=== PATIENT | male | born 1945 | race African-American/Black ===

== ENCOUNTER 2016-10-18 08:54 | Outpatient (CLI) | payer OTHER ==
[2015-10-29 10:55] VITALS: BMI 19.9
[2016-10-18 09:18] LABS: BASOPHILS # (AUTO) 0.1 K/uL (0-0.2); BASOPHILS % (AUTO) 0.9 % (0.0-3.0); EOSINOPHILS # (AUTO) 0.4 K/ul (0.0-0.7); HEMOGLOBIN 16.3 g/dl (14.0-18.0); IMMATURE GRANULOCYTE % (AUTO) 0.3 % (0.0-5.0); LYMPHOCYTES # (AUTO) 2.1 K/uL (0.60-3.4); LYMPHOCYTES % (AUTO) 23.1 (10.0-50.0); MEAN CORPUSCULAR HEMOGLOBIN 29.4 pg (27.0-31.0); MEAN CORPUSCULAR VOLUME 86.5 fl (80.0-94.0); MONOCYTES # (AUTO) 0.7 K/uL (0.4-2.0); MONOCYTES % (AUTO) 7.5 (0-10); NEUTROPHILS # (AUTO) 5.8 K/ul (2.0-6.9); NEUTROPHILS % (AUTO) 64.2; PLATELET COUNT 180 10^3/uL (140-440); RED BLOOD COUNT 5.55 10^6/ul (4.70-6.10); WHITE BLOOD COUNT 9.04 K/ul (4.2-10.2)
[2016-10-18 15:40] LABS: ALBUMIN 4.2 g/dL (3.4-5.0); ALBUMIN/GLOBULIN RATIO 1.35; BILIRUBIN,TOTAL 0.66 mg/dL (0.00-1.20); BUN/CREATININE RATIO 11.84; CALCIUM 9.6 mg/dL (8.2-10.2); CREATININE 1.52 mg/dL (0.60-1.10); TOTAL PROTEIN 7.3 g/dL (5.8-8.1)
== END 2016-10-18 08:55 | disposition home or self-care (01) ==
LOC: LAB 08:54
PROVIDERS: ATTEND Family Medicine
DX: I10 Essential (primary) hypertension (principal)
CPT/HCPCS: 36415; 80053; 85025

== ENCOUNTER 2017-06-10 13:17 | Emergency (ER) ==
[2017-06-10 13:22] VITALS: BP 187/99; TEMP 97.3; BMI 20.2
--- NOTE | 2017-06-10 14:43 | CT ---
EXAM: CT of the head without contrast History: Head trauma. Comparison: Head CT 10/29/2015 Technique: Multiplanar CT images through the head were obtained without the administration of IV con trast Findings: The visualized paranasal sinuses and mastoid air cells are clear in general. No acute cherry varial abnormalities. Stable postsurgical changes of the skull. Intracranially stable bifrontal encephalomalacia and stable right-sided shunt catheter with no hydroc ephalous. No change in the periventricular and subcortical white matter hypodensities. Aneurysm cli p again identified. Atherosclerotic vascular calcifications. No acute intracranial hemorrhage. Impression: No acute intracranial process. Stable chronic brain changes. No change compared to the prior study.
--- NOTE | 2017-06-10 14:48 | CT ---
EXAM: CT chest without contrast HISTORY: Cough and recent trauma/injury COMPARISON: Chest CT 08/28/2012 TECHNIQUE: Serial axial images of the chest were obtained from the lung apices to the upper abdomen without contrast. These were viewed in multiple planes. FINDINGS: The thyroid is normal. Subcutaneous right sided shunt tube is unchanged. The lead wires are unchanged with tips in the right atrium and ventricle. Heart is mildly enlarged. The visualized vessels are unremarkable without aneurysm or stenosis. There are no pathologically enlarged mediasti nal or hilar lymph nodes. There is no pneumothorax or pleural effusion. There is mild apical predominant emphysema. There is m ild bibasilar atelectasis. There is mild small airway thickening in the lower lobes. No consolidatio n, nodule or mass is identified. The soft tissues in the upper abdomen are unremarkable. There is persistent adrenal nodularity. The osseous structures are unremarkable. IMPRESSION: 1. Mild small airway thickening suggestive of inflammation versus infection. 2. Mild apical predominant emphysema with no acute consolidation. There is mild bibasilar atelectasi s. 3. The heart is mildly enlarged.
--- NOTE | 2017-06-10 14:53 | CT ---
EXAM: CT cervical spine without contrast. HISTORY: Initial presentation for neck injury due to a fall. COMPARISON: None available. TECHNIQUE: Multiple axial images of the cervical spine were obtained without intravenous contrast. Images were reformatted in the sagittal and coronal planes. FINDINGS: There is normal curvature and alignment. Vertebral body and intervertebral disc heights a re maintained. No fracture or subluxation is seen. There is no evidence for significant central can al stenosis. Uncovertebral hypertrophy and facet arthropathy cause multilevel neural foraminal narrow ing which is greater on the left. The prevertebral soft tissues are unremarkable. Shunt catheter cour ses in the right neck although it is discontinuous for approximately 3.6 cm at the level of the skull base and upper cervical spine. Emphysematous changes present in the lung apices. Atherosclerotic ca lcifications noted. IMPRESSION: 1. No acute abnormality of the cervical spine. 2. Right-sided ventriculoperitoneal shunt catheter with 3.6 centimeter area of discontinuityat the l evel of the skull base/upper cervical spine.
--- NOTE | 2017-06-10 15:21 | ED.PDOC ---
General ED Provider: Dr. IRAM LARSON Chief Complaint: Head Injury Stated Complaint: head injury Time Seen by Physician: 13:30 (fall at [facility]) Mode of Arrival: Walk-In Information Source: Patient, Family Exam Limitations: No limitations Primary Care Provider: SHUKRI CASTILLO Nursing and Triage Documentation Reviewed and Agree: Yes Reviewed sepsis parameters & appropriate labs ordered?: Yes System Inflammatory Response Syndrome: Not Applicable Sepsis Protocol: For patient's 13 years and over: Temp is 96.8 and below OR 101 and greater Pulse >90 BPM Resp >20/minute Acutely Altered Mental Status Are patient's symptoms suggestive of a new infection, such as: -Pneumonia -Skin, Soft Tissue -Endocarditis -UTI -Bone, Joint Infection -Implantable Device -Acute Abdominal Infection -Wound Infection -Meningitis -Blood Stream Catheter Infection -Unknown System Inflammatory Response Syndrome: Not Applicable Review of Systems - Review Of Systems Constitutional: Reports: No symptoms Eyes: Reports: No symptoms Ears, Nose, Mouth, Throat: Reports: No symptoms Respiratory: Reports: No symptoms Cardiac: Reports: No symptoms GI: Reports: No symptoms : Reports: No symptoms Musculoskeletal: Reports: No symptoms Skin: Reports: No symptoms Neurological: Reports: No symptoms Endocrine: Reports: No symptoms Hematologic/Lymphatic: Reports: No symptoms All Other Systems: Reviewed and Negative Past Medical History - Past Medical History Previously Healthy: Yes Endocrine: Reports: None Cardiovascular: Reports: Hypertension, Other Respiratory: Reports: None Hematological: Reports: None Gastrointestinal: Reports: None Genitourinary: Reports: None Neuro/Psych: Reports: Other Musculoskeletal: Reports: None Cancer: Reports: None - Surgical History General Surgical History: Reports: Stent (ventricular shunt after aneurysm surgery), Pacemaker - Family History Family History: Reports: Unknown - Social History Smoking Status: Current every day smoker, Light tobacco smoker Hx Substance Use: No Alcohol Screening: None Physical Exam - Physical Exam Appearance: Well-appearing, No pain distress, Well-nourished Eyes: NATALIIA, EOMI, Conjunctiva clear (abrasion above left orbit) ENT: Ears normal, Nose normal, Oropharynx normal Respiratory: Airway patent, Breath sounds clear, Breath sounds equal, Respirations nonlabored Cardiovascular: RRR, Pulses normal, No rub, No murmur GI/: Soft, Nontender, No masses, Bowel sounds normal, No Organomegaly Musculoskeletal: Normal strength, ROM intact, No edema, No calf tenderness Skin: Warm, Dry, Normal color Neurological: Sensation intact, Motor intact, Reflexes intact, Cranial nerves intact, Alert, Oriented Psychiatric: Affect appropriate, Mood appropriate Interpretation - Radiology Interpretation Radiology Interpretation By: Radiologist Radiology Results: No acute changes Physician Notification - Case Discussed Physician Notified: PMD Time of Notification: 15:22 Critical Care Note - Critical Care Note Total Time (mins): 0 Course - Course Hematology/Chemistry: 06/10/17 14:10 06/10/17 14:10 Orders, Labs, Meds: Lab Review 06/10/17 06/10/17 06/10/17 14:10 14:10 14:10 WBC 10.75 H RBC 5.04 Hgb 14.5 Hct 44.2 MCV 87.7 MCH 28.8 MCHC 32.8 RDW Coeff of Delmy 14.6 Plt Count 212 Immature Gran % (Auto) 0.7 Neut % (Auto) 81.4 Lymph % (Auto) 10.6 Mayes % (Auto) 5.0 Eos % (Auto) 1.6 Baso % (Auto) 0.7 Immature Gran # (Auto) 0.1 Neut # 8.8 H Lymph # 1.1 Mayes # 0.5 Eos # 0.2 Baso # 0.1 Sodium 142 Potassium 4.1 Chloride 105 Carbon Dioxide 28 Anion Gap 13.1 BUN 13 Creatinine 1.17 H Estimated GFR (MDRD) 75.00 BUN/Creatinine Ratio 11.11 Glucose 101 Calcium 9.5 Total Bilirubin 0.6 AST 16 ALT 7 L Alkaline Phosphatase 75 Total Creatine Kinase 127 CK-MB (CK-2) 2.6 CK-MB (CK-2) % 2.52059 Troponin I 0.0480 Total Protein 7.6 Albumin 4.1 Globulin 3.5 Albumin/Globulin Ratio 1.17 Procalcitonin < 0.05 Orders Category Date Time Status EKG-(ED ONLY) Stat CARDIO 06/10/17 13:41 Completed BLOOD CULTURE (ED ONLY) Stat LAB 06/10/17 14:10 Received CBC W/ AUTO DIFF Stat LAB 06/10/17 14:10 Completed COMPREHENSIVE METABOLIC PANEL Stat LAB 06/10/17 14:10 Completed CREATINE KINASE Stat LAB 06/10/17 14:10 Completed PROCALCITONIN Stat LAB 06/10/17 14:10 Completed TROPONIN I Stat LAB 06/10/17 14:10 Completed URINALYSIS C & S IF INDICATED Stat LAB 06/10/17 13:[address] CERVICAL SPINE W/O CONTRAST Stat RADS 06/10/17 13:[address] CHEST W/O CONTRAST Stat RADS 06/10/17 13:[address] HEAD W/O CONTRAST Stat RADS 06/10/17 13:40 Completed Vital Signs: Temp Pulse Resp BP Pulse Ox 06/10/17 13:18 97.3 F L 82 16 187/99 H 94 L Departure - Departure Time of Disposition: 15:22 Disposition: HOME SELF-CARE Discharge Problem: Injury of head, Poorly-controlled hypertension Instructions: Head Injury (ED) Condition: Good Pt referred to PMD for follow-up: Yes IPMP verified?: Yes Additional Instructions: Please call your Family Physician as soon as possible to schedule a follow-up appointment. Allergies/Adverse Reactions: Allergies No Known Allergies Allergy (Verified 06/10/17 13:22) Home Medications: Ambulatory Orders Lisinopril 10 mg PO DAILY #30 tablet 09/17/15 Donepezil HCl 10 mg PO BEDTIME 06/10/17 Memantine HCl 10 mg PO BID 06/10/17
[2017-06-10] MEDS ORDERED: ZESTRIL PO STA (15:23)
== END 2017-06-10 16:59 | disposition home or self-care (01) ==
LOC: ED 13:17
DX: S09.90XA Unspecified injury of head, initial encounter (principal); W19.XXXA Unspecified fall, initial encounter; Y92.512 Supermarket, store or market as the place of occurrence of the external cause; I10 Essential (primary) hypertension; Z79.899 Other long term (current) drug therapy
CPT/HCPCS: 36415; 80053; 82550; 82553; 84145; 84484; 85025; 87040; 93005; 93010; 99283

== ENCOUNTER 2017-06-30 07:20 | Outpatient (CLI) | payer OTHER ==
--- NOTE | 2017-06-30 08:34 | US ---
EXAM: Abdominal ultrasound limited HISTORY: Abdominal pain COMPARISON: CT chest abdomen pelvis 08/28/2012 and bone scan 01/16/2016 TECHNIQUE: Sonographic and limited Doppler evaluation of the right upper quadrant was performed. FINDINGS: The liver is normal in echogenicity and measures 11.9 cm. The portal vein is patent. The gallbladder demonstrates minimal sludge. The gallbladder wall measures 0.2 cm in thickness. Common bile duct is unremarkable and measures 0.4. cm in diameter. The pancreas is unremarkable in appearan ce. The right kidney is partial obscured due to bowel gas and measures 7.9 x 3.5 x 3.8 cm with cortic al thickness of 0.8 cm. IMPRESSION: Minimal gallbladder sludge with no wall thickening or pericholecystic fluid.
--- NOTE | 2017-06-30 09:34 | CT ---
EXAM: CT ABDOMEN AND PELVIS HISTORY: Right upper quadrant abdominal pain for 2 weeks TECHNIQUE: CT abdomen and pelvis with intravenous contrast. Images were reconstructed using 5 mm sec tion thickness. Reformations were prepared. 75 mL Omnipaque. COMPARISON: 08/28/2012 FINDINGS: Liver demonstrates a 5 x 9 mm low attenuation lesion right hepatic lobe posteriorly which is grossly stable probably representing a cyst. No noticeable intrahepatic or extrahepatic biliary dilatation. S pleen appears normal. The gallbladder is grossly unremarkable. The pancreatic duct is seen throughou t the length of the organ grossly similar to that on prior study and indicating a mild dilatation. N o obvious acute pancreatic inflammation or mass is identified. No concerning adrenal finding. A few s mall renal cortical cysts are suggested. No hydronephrosis. The ureters are not well seen. There i s no perinephric fat stranding. Moderately severe atherosclerotic disease. There is a saccular aneu rysmal dilatation of the lower right common iliac artery measuring 1.9 cm increased from 1.6 cm previ ously. No gastric distension. What appears to represent a portion of the appendix appears normal. Nonobstr uctive bowel gas pattern. There is a significantly enlarged, somewhat lobulated prostate. Urinary b ladder has circumferential wall thickening as well as two intraluminal calculi each measuring about 1 .7 cm. The calculi have enlarged since the previous exam. The urinary bladder wall thickening has d eveloped and the prostate size has increased since previous study. No ascites. There is a catheter e nding in the lower pelvis. No abdominal wall hernia. The bones reveal no acute abnormality. Lung bases are free of acute infil trate. Cardiomegaly is present. No pneumoperitoneum. IMPRESSION: 1. Grossly stable mild main pancreatic duct dilatation without evidence of pancreatic mass or inflam mation. Correlate clinically. No intrahepatic or extrahepatic biliary dilatation is identified. Th e gallbladder appears normal. 2. Moderately severe atherosclerosis. 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 3. Significantly enlarged and lobulated prostate, increased since previous exam. 4. Two moderate sized bladder calculi. There is circumferential urinary bladder wall thickening lik jean carlos related to chronic partial outlet obstruction. 5. Cardiomegaly.
== END 2017-06-30 07:21 | disposition home or self-care (01) ==
LOC: RAD 07:20
PROVIDERS: ATTEND Family Medicine
DX: R10.9 Unspecified abdominal pain (principal)
CPT/HCPCS: 36415; 80053; 82150; 83690; 85025

== ENCOUNTER 2017-10-19 12:15 | Outpatient (CLI) | payer OTHER | END 2017-10-19 12:16 | disposition home or self-care (01) | LOC: LAB 12:15 | PROVIDERS: ATTEND Family Medicine | DX: R10.9 Unspecified abdominal pain (principal); R63.4 Abnormal weight loss | CPT/HCPCS: 36415; 80053; 84439; 84443; 85025 ==

== ENCOUNTER 2017-12-26 12:44 | Emergency (ER) | payer OTHER ==
[2017-12-26 12:54] VITALS: BP 101/69; TEMP 96.1; BMI 18.2
--- NOTE | 2017-12-26 14:29 | DI ---
EXAM: CHEST FRONTAL VIEW HISTORY: Cough. FINDINGS / IMPRESSION: Compared to 07/20/2010. Cardiomegaly is again noted. Left-sided pacemaker unit has been placed. The ventricular lead is chelsie tered over the lower mid cardiac silhouette. Consider having the orthopedics nurse view the imaged to ass ure this position is appropriate. Evaluation of the leads is limited without two views of the chest. Lungs are clear. No vascular congestion or pleural fluid. Probable ventriculoperitoneal shunt.
--- NOTE | 2017-12-26 14:50 | CT ---
EXAM: CT of the head without contrast History: Head trauma. Comparison: Head CT 06/10/2017. Technique: Multiplanar CT images through the head were obtained without the administration of IV con trast Findings: The visualized paranasal sinuses and mastoid air cells are clear in general. No acute cherry varial abnormalities. Stable postsurgical changes of the skull. Intracranially stable bifrontal encephalomalacia and stable right-sided shunt catheter with no hydroc ephalous. No change in the periventricular and subcortical white matter hypodensities. Aneurysm cli p again identified. Atherosclerotic vascular calcifications. No acute intracranial hemorrhage. Impression: No acute intracranial process. Stable chronic brain changes. No change compared to the prior study.
--- NOTE | 2017-12-26 14:51 | CT ---
EXAM: CT cervical spine without contrast. HISTORY: Cervical pain post fall COMPARISON: CT cervical spine 06/10/2017 TECHNIQUE: Serial axial images of the cervical spine were obtained from the skull base through the l booker apices without contrast. These were viewed in multiple planes. FINDINGS: There is no acute compression fracture or subluxation. There is mild straightening/revers al of the cervical spine which is unchanged in comparison to prior study. There is mild facet arthro soham. There is no lytic or blastic lesion. C1 ring is intact with mild degenerative change at the articulation of C1. There is intact tubing within the soft tissues of the posterior right neck with u nchanged a discontinuity in the region of the skull base.. Lung apices demonstrate moderate emphysema . IMPRESSION: 1. No acute compression fracture or subluxation. 2. Straightening/mild reversal of the cervical spine which is unchanged. 3. Mild multilevel degenerative disease of the cervical spine. 4. Unchanged [employer] shunt catheter with area of discontinuity in the skull base. This is stable since .
--- NOTE | 2017-12-26 15:27 | ED.PDOC ---
General ED Provider: Dr. IRAM LARSON Chief Complaint: Fall Stated Complaint: FALL POSSIBLE SYNCOPE Time Seen by Physician: 13:00 (PT AOX3 NO PAIN FACIAL ABRASION NOTED ) Mode of Arrival: Wheelchair Information Source: Patient Exam Limitations: No limitations Primary Care Provider: SHUKRI CASTILLO Nursing and Triage Documentation Reviewed and Agree: Yes Does patient meet sepsis criteria?: No If yes, has appropriate treatment been initiated?: No System Inflammatory Response Syndrome: Not Applicable Sepsis Protocol: For patient's 13 years and over: Temp is 96.8 and below OR 101 and greater Pulse >90 BPM Resp >20/minute Acutely Altered Mental Status Are patient's symptoms suggestive of a new infection, such as: -Pneumonia -Skin, Soft Tissue -Endocarditis -UTI -Bone, Joint Infection -Implantable Device -Acute Abdominal Infection -Wound Infection -Meningitis -Blood Stream Catheter Infection -Unknown Neurological Complaint Exam - Syncope/Near Syncope Complaint/Exam Onset/Duration: TODAY AT A LOCAL [employer] OUT SIDE FOUND BY [facility]ASS[facility] BY Symptoms Are: Still present Number of Episodes: 1 Frequency of Episodes: 1 Episodes Witnessed: Yes (BUT THE PERSON IS NOT HERE ) Loss of Consciousness: No (POSSIBLE BUT PRESENTLY ALERT.O.X 3 ) Associated Head Trauma: No (BUT FACIAL ABRASION LEFT SIDED ) Activity at Onset: Unknown Aggravating: None Alleviating: Reports: Spontaneous resolution Associated Signs and Symptoms: Denies: Pain, Decreased oral intake, Vomiting, Diarrhea, GI blood loss, Short of air, Chest pain, Palpitations, Diaphoresis, Lightheadedness, Dizziness, Weakness, AMS, Numbness, Headache, Seizure, Remote head trauma, Recent head trauma Cardiac Risk Factors: Reports: Hypertension GI Bleed Risk Factors: Reports: None Dysrhythmia Risk Factors: Reports: None Related Surgical History: Reports: None JVD Present: No Carotid Bruit Present: No Rectal Heme Positive: No Glascow Coma Scale (see protocol): 15 Nystagmus Present: No Gag Reflex Present: Yes Meningeal Signs Positive: No Focal Weakness: Present: None Focal Sensory Loss: Present: None Gait: Normal [id number]: Normal Findings Babinski Sign: Negative Right, Negative Left Differential Diagnoses: Dysrhythmia, Hypoglycemia, Metabolic Reaction Quality Indicators for Cardiac Chest Pain: EKG in 10min. Quality Indicator For Non-Traumatic Chest Pain/Syncope: EKG Performed Review of Systems - Review Of Systems Constitutional: Reports: No symptoms Eyes: Reports: No symptoms Ears, Nose, Mouth, Throat: Reports: No symptoms Respiratory: Reports: No symptoms Cardiac: Reports: Syncope GI: Reports: No symptoms : Reports: No symptoms Musculoskeletal: Reports: No symptoms Skin: Reports: No symptoms Neurological: Reports: No symptoms Endocrine: Reports: No symptoms Hematologic/Lymphatic: Reports: No symptoms All Other Systems: Reviewed and Negative Past Medical History - Past Medical History Previously Healthy: Yes Endocrine: Reports: None Cardiovascular: Reports: Hypertension, Other Respiratory: Reports: None Hematological: Reports: None Gastrointestinal: Reports: None Genitourinary: Reports: None Neuro/Psych: Reports: Other Musculoskeletal: Reports: None Cancer: Reports: None - Surgical History General Surgical History: Reports: Stent (ventricular shunt after aneurysm surgery), Pacemaker - Family History Family History: Reports: Unknown - Social History Smoking Status: Current every day smoker, Light tobacco smoker Hx Substance Use: No Alcohol Screening: None Physical Exam - Physical Exam Appearance: Well-appearing, No pain distress, Well-nourished Eyes: NATALIIA, EOMI, Conjunctiva clear ENT: Ears normal, Nose normal, Oropharynx normal Respiratory: Airway patent, Breath sounds clear, Breath sounds equal, Respirations nonlabored Cardiovascular: RRR, Pulses normal, No rub, No murmur GI/: Soft, Nontender, No masses, Bowel sounds normal, No Organomegaly Musculoskeletal: Normal strength, ROM intact, No edema, No calf tenderness Skin: Warm, Dry (ABRASION LEFT FACE) Neurological: Sensation intact, Motor intact, Reflexes intact, Cranial nerves intact, Alert, Oriented Psychiatric: Affect appropriate, Mood appropriate Interpretation - Radiology Interpretation Radiology Interpretation By: Radiologist Radiology Results: No acute changes (CSPINE, CT BRAIN, CHEST GARY NO ACUTE CHANGES) - Resident Associate Rhythm: Sinus - EKG Interpretation Rhythm: Sinus (INTERNSIC RYTHM IS SINUS ATRIAL PACER WITH 100% CAPTURE NO CRITERIA TO STATISFY FOR M.I.(NO GAR[place]OSSA CRITERIA OR MODIFIED GAR[place]OS[place] CRITERIA NOTED TO BE POSTIVE)) Critical Care Note - Critical Care Note Total Time (mins): 0 Course - Course Hematology/Chemistry: 12/26/17 13:35 12/26/17 13:35 Orders, Labs, Meds: Lab Review 12/26/17 12/26/17 12/26/17 13:35 13:35 13:35 WBC 12.59 H RBC 4.59 L Hgb 13.4 L Hct 40.1 L MCV 87.4 MCH 29.2 MCHC 33.4 RDW Coeff of Delmy 14.6 Plt Count 188 Immature Gran % (Auto) 0.6 Neut % (Auto) 81.4 Lymph % (Auto) 9.9 L Crook % (Auto) 5.3 Eos % (Auto) 2.1 Baso % (Auto) 0.7 Immature Gran # (Auto) 0.1 Neut # (Auto) 10.2 H Lymph # (Auto) 1.3 Crook # (Auto) 0.7 Eos # (Auto) 0.3 Baso # (Auto) 0.1 Puncture Site O2 Saturation ABG pH ABG pCO2 ABG pO2 ABG HCO3 ABG Total CO2 ABG Base Excess Akshat Test FiO2 % Sodium 139 Potassium 4.2 Chloride 107 Carbon Dioxide 24 Anion Gap 12.2 BUN 19 H Creatinine 1.36 H Estimated GFR (MDRD) 63.00 BUN/Creatinine Ratio 13.97 Glucose 105 Lactic Acid 20.7 H Calcium 9.3 Total Bilirubin 0.6 AST 14 L ALT 8 L Alkaline Phosphatase 63 Total Creatine Kinase 89 Troponin I 0.0200 Total Protein 6.8 Albumin 3.7 Globulin 3.1 Albumin/Globulin Ratio 1.19 Procalcitonin 12/26/17 12/26/17 13:35 13:45 WBC RBC Hgb Hct MCV MCH MCHC RDW Coeff of Delmy Plt Count Immature Gran % (Auto) Neut % (Auto) Lymph % (Auto) Crook % (Auto) Eos % (Auto) Baso % (Auto) Immature Gran # (Auto) Neut # (Auto) Lymph # (Auto) Crook # (Auto) Eos # (Auto) Baso # (Auto) Puncture Site R brach O2 Saturation 97.0 ABG pH 7.429 ABG pCO2 37.7 ABG pO2 84.0 L ABG HCO3 25.0 ABG Total CO2 26 ABG Base Excess 1 Akshat Test + FiO2 % 21.0 Sodium Potassium Chloride Carbon Dioxide Anion Gap BUN Creatinine Estimated GFR (MDRD) BUN/Creatinine Ratio Glucose Lactic Acid Calcium Total Bilirubin AST ALT Alkaline Phosphatase Total Creatine Kinase Troponin I Total Protein Albumin Globulin Albumin/Globulin Ratio Procalcitonin < 0.05 Orders Category Date Time Status ABG DRAW REQUEST Stat CARDIO 12/26/17 13:43 Completed EKG-(ED ONLY) Stat CARDIO 12/26/17 13:14 Completed ABG Stat LAB 12/26/17 13:45 Completed BLOOD CULTURE Stat LAB 12/26/17 13:15 Received CBC W/ AUTO DIFF Stat LAB 12/26/17 13:35 Completed COMPREHENSIVE METABOLIC PANEL Stat LAB 12/26/17 13:35 Completed CREATINE KINASE Stat LAB 12/26/17 13:35 Completed LACTIC ACID Stat LAB 12/26/17 13:35 Completed PROCALCITONIN Stat LAB 12/26/17 13:35 Completed TROPONIN I Stat LAB 12/26/17 13:35 Completed CHEST, 1V AP ONLY Stat RADS 12/26/17 13:[address] CERVICAL SPINE W/O CONTRAST Stat RADS 12/26/17 13:[address] HEAD W/O CONTRAST Stat RADS 12/26/17 13:14 Completed Vital Signs: Temp Pulse Resp BP Pulse Ox 12/26/17 12:48 96.1 F L 83 16 101/69 96 Departure - Departure Time of Disposition: 15:31 Disposition: HOME SELF-CARE Discharge Problem: Falls, Renal insufficiency Syncope Qualifiers: Syncope type: unspecified Qualified Code(s): R55 - Syncope and collapse Instructions: Syncope (ED), Pacemaker (DC), Chronic Kidney Disease (ED) Condition: Good Pt referred to PMD for follow-up: Yes IPMP verified?: No Additional Instructions: Please call your Family Physician as soon as possible to schedule a follow-up appointment. Allergies/Adverse Reactions: Allergies No Known Allergies Allergy (Verified 12/26/17 12:48) Home Medications: Ambulatory Orders Lisinopril 10 mg PO DAILY #30 tablet 09/17/15 Donepezil HCl 10 mg PO BEDTIME 06/10/17 Memantine HCl 10 mg PO BID 06/10/17
== END 2017-12-26 15:40 | disposition home or self-care (01) ==
LOC: ED 12:44
DX: R55 Syncope and collapse (principal); S00.81XA Abrasion of other part of head, initial encounter; W19.XXXA Unspecified fall, initial encounter; I10 Essential (primary) hypertension; Z95.0 Presence of cardiac pacemaker; F17.210 Nicotine dependence, cigarettes, uncomplicated
CPT/HCPCS: 36415; 80053; 82550; 82803; 83605; 84145; 84484; 85025; 87040; 93005; 93010; 99283

== ENCOUNTER 2018-04-29 14:25 | Emergency (ER) ==
[2018-04-29 14:39] VITALS: TEMP 97.3; BMI 18.3
--- NOTE | 2018-04-29 15:45 | CT ---
EXAM: CT brain without contrast HISTORY: Syncope TECHNIQUE: Multi-slice transaxial helical with coronal and sagital reformated images COMPARISON: CT brain from 12/26/2017 FINDINGS: The midline structures are central. A right transparietal ventriculoperitoneal shunt tube ends near the body of the right lateral ventricle and is unchanged. There are aneurysm clips near t he terminus of the left internal carotid artery/anterior communicating artery. A left frontal pariet al craniotomy has been performed in the past. There is mild ex vacuo dilatation of the frontal horns of the lateral ventricle. There is encephalomalacia in the frontal lobes, left greater than right. Moderate low attenuation in the periventricular white matter is nonspecific but is likely related to chronic microvascular ischemic disease. No acute intraparenchymal or extraaxial hemorrhagic collecti ons are detected. The calvarium is intact. The visible paranasal sinuses and mastoid air cells are clear. IMPRESSION: 1. No acute intracranial process. 2. Shunted ventricles without hydrocephalous. 3. Bifrontal encephalomalacia, left greater than right. 4. Previous open aneurysm repair of the [place] of [place]. 5. Previous left frontal craniotomy. 6. Moderate chronic microvascular ischemic disease.
--- NOTE | 2018-04-29 16:02 | ED.PDOC ---
General ED Provider: Dr. TOM GAMEZ Chief Complaint: Syncope Stated Complaint: Patient was found down on the street by a by stander. Family states he walks all the time. It is not sure how low he was out for probably 5 minutes he says. Has chronic mild headache. Time Seen by Physician: 14:45 Mode of Arrival: Wheelchair Information Source: Patient Exam Limitations: No limitations Primary Care Provider: SHUKRI CASTILLO Nursing and Triage Documentation Reviewed and Agree: Yes Does patient meet sepsis criteria?: No System Inflammatory Response Syndrome: Not Applicable Sepsis Protocol: For patient's 13 years and over: Temp is 96.8 and below OR 101 and greater Pulse >90 BPM Resp >20/minute Acutely Altered Mental Status Are patient's symptoms suggestive of a new infection, such as: -Pneumonia -Skin, Soft Tissue -Endocarditis -UTI -Bone, Joint Infection -Implantable Device -Acute Abdominal Infection -Wound Infection -Meningitis -Blood Stream Catheter Infection -Unknown Neurological Complaint Exam - Syncope/Near Syncope Complaint/Exam Onset/Duration: today Symptoms Are: Still present Episodes Lasting: Minutes (5) Number of Episodes: 1 Frequency of Episodes: once Episodes Witnessed: No Loss of Consciousness: Yes Associated Head Trauma: No Activity at Onset: Unknown Aggravating: None Alleviating: Reports: Spontaneous resolution Associated Signs and Symptoms: Reports: Pain (mild headache ). Denies: Decreased oral intake, Vomiting, Diarrhea, GI blood loss, Short of air, Chest pain, Dizziness, Weakness, AMS, Numbness, Headache, Seizure, Remote head trauma , Recent head trauma Cardiac Risk Factors: Reports: Smoking GI Bleed Risk Factors: Reports: None Dysrhythmia Risk Factors: Reports: None JVD Present: No Carotid Bruit Present: No Rectal Heme Positive: No Glascow Coma Scale (see protocol): 15 Nystagmus Present: No Gag Reflex Present: No Meningeal Signs Positive: No Focal Weakness: Present: None Focal Sensory Loss: Present: None Gait: Normal [id number]: Normal Findings Romberg Test Positive: No Babinski Sign: Negative Right, Negative Left Heel to Toe Normal: No Atwood-Hallpike Test Positive: No Differential Diagnoses: CVA, TIA Quality Indicator For Non-Traumatic Chest Pain/Syncope: EKG Performed Quality Indicators for AMI: EKG in 10min. Review of Systems - Review Of Systems Constitutional: Reports: No symptoms Eyes: Reports: No symptoms Ears, Nose, Mouth, Throat: Reports: No symptoms Respiratory: Reports: No symptoms Cardiac: Reports: Lightheadedness, Syncope. 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), Pacemaker - Family History Family History: Reports: Unknown - Social History Smoking Status: Current every day smoker, Light tobacco smoker Hx Substance Use: No Alcohol Screening: None Physical Exam - Physical Exam Appearance: Well-appearing, No pain distress, Well-nourished Eyes: NATALIIA, EOMI, Conjunctiva clear ENT: Ears normal, Nose normal, Oropharynx normal Respiratory: Airway patent, Breath sounds clear, Breath sounds equal, Respirations nonlabored Cardiovascular: RRR, Pulses normal, No rub, No murmur GI/: Soft, Nontender, No masses, Bowel sounds normal, No Organomegaly Musculoskeletal: Normal strength, ROM intact, No edema, No calf tenderness Skin: Warm, Dry, Normal color Neurological: Sensation intact, Motor intact, Reflexes intact, Cranial nerves intact, Alert, Oriented Psychiatric: Anxious - NIH Stroke Scale 1a. Level of Consciousness: 0=Alert and keenly responsive 1b. Level of Consciousness Questions: 0=Answers correctly to two questions 1c. Level of Consciousness Commands: 0=Performs two tasks correctly 2. Best Gaze: 0=Normal 3. Visual: 0=No visual loss 4. Facial Palsy: 0=Normal 5a. Motor Left Arm: 0=No drift,arm holds 90 degrees for 10 sec., leg 30 degrees for 5 sec. 5b. Motor Right Arm: 0=No drift,arm holds 90 degrees for 10 sec., leg 30 degrees for 5 sec. 6a. Motor Left Le=No drift,arm holds 90 degrees for 10 sec., leg 30 degrees for 5 sec. 6b. Motor Right Le=No drift,arm holds 90 degrees for 10 sec., leg 30 degrees for 5 sec. 7. Limb Ataxia: 0=Absent 9. Best Language: 0=No aphasia 10. Dysarthria: 0=Normal 11. Extincion and Inattention: 0=Normal Stroke Scale Total: 0 Interpretation - Radiology Interpretation Radiology Interpretation By: Radiologist Radiology Results: No acute changes Exam Interpreted: CT Scan - EKG Interpretation Time of EKG #1: 14:54 Rate: Normal (electronic paced ) Rhythm: Other (paced) Interpretation: Electronic Paced. Critical Care Note - Critical Care Note Total Time (mins): 35 Course - Course Hematology/Chemistry: 04/29/18 14:50 04/29/18 14:50 Orders, Labs, Meds: Lab Review 04/29/18 04/29/18 04/29/18 14:50 14:50 14:50 WBC 9.76 RBC 4.82 Hgb 14.0 Hct 43.5 MCV 90.2 MCH 29.0 MCHC 32.2 RDW Coeff of Delmy 14.0 Plt Count 210 Immature Gran % (Auto) 0.4 Neut % (Auto) 76.0 Lymph % (Auto) 14.9 [place] % (Auto) 5.6 Eos % (Auto) 2.0 Baso % (Auto) 1.1 Immature Gran # (Auto) 0.0 Neut # (Auto) 7.4 H Lymph # (Auto) 1.5 [place] # (Auto) 0.6 Eos # (Auto) 0.2 Baso # (Auto) 0.1 Sodium 138.8 Potassium 4.18 Chloride 103.3 Carbon Dioxide 29.1 Anion Gap 10.58 BUN 19.4 Creatinine 1.46 H Estimated GFR (MDRD) 58.00 BUN/Creatinine Ratio 13.28 Glucose 94.9 Calcium 9.42 Total Bilirubin 0.56 AST 20.1 ALT 11.0 Alkaline Phosphatase 60.5 Total Creatine Kinase 48.9 L Troponin I 0.018 Total Protein 7.38 Albumin 4.37 Globulin 3.01 Albumin/Globulin Ratio 1.45 Amylase 203.9 H Lipase 418.0 H Orders Category Date Time Status EKG-(ED ONLY) Stat CARDIO 04/29/18 14:41 Completed ED IV/MEDIPORT/POWERPORT .ONCE EMERGENCY 04/29/18 14:40 Active Orthostatic [ED ORTHOSTATIC VITAL SIGNS] .ONCE EMERGENCY 04/29/18 15:56 Active AMYLASE Stat LAB 04/29/18 14:50 Completed CBC W/ AUTO DIFF Stat LAB 04/29/18 14:50 Completed COMPREHENSIVE METABOLIC PANEL Stat LAB 04/29/18 14:50 Completed CREATINE KINASE Stat LAB 04/29/18 14:50 Completed LIPASE Stat LAB 04/29/18 14:50 Completed TROPONIN I Stat LAB 04/29/18 14:50 Completed 0.9 % Sodium Chloride [Saline Flush] MEDS 04/29/18 14:40 Ordered 1 syr IVF PRN PRN Ringers Lactated Solution [Lactated Ringers] 1,000 ml MEDS 04/29/18 16:03 Active IV BOLUS CHEST, 1V AP ONLY Stat RADS 04/29/18 14:[address] HEAD W/O CONTRAST Stat RADS 04/29/18 15:19 Completed Medications Generic Name Dose Route Start Last Admin Trade Name Freq PRN Reason Stop Dose Admin Lactated Ringer's 1,000 mls @ 1,000 mls/hr 04/29/18 16:03 04/29/18 16:17 Lactated Ringers IV 04/29/18 17:02 1,000 mls/hr BOLUS STA Administration Sodium Chloride 1 syr 04/29/18 14:40 Saline Flush IVF PRN PRN To flush IV Vital Signs: Temp Pulse Resp BP Pulse Ox 04/29/18 16:04 75 152/99 H 04/29/18 16:03 69 177/84 H 04/29/18 14:26 97.3 F L 83 20 153/97 H 98 Departure - Departure Time of Disposition: 17:00 Disposition: HOME SELF-CARE Discharge Problem: Orthostatic dizziness, Dehydration, mild Syncope Qualifiers: Syncope type: vasovagal syncope Qualified Code(s): R55 - Syncope and collapse Instructions: Dehydration (ED) Condition: Good Pt referred to PMD for follow-up: Yes IPMP verified?: No Additional Instructions: Push fluids Follow up with PCP in 3 days return if worse. Allergies/Adverse Reactions: Allergies No Known Allergies Allergy (Verified 04/29/18 14:36) Home Medications: Ambulatory Orders Lisinopril 10 mg PO DAILY #30 tablet 09/17/15 Donepezil HCl 10 mg PO BEDTIME 06/10/17 Memantine HCl 10 mg PO BID 06/10/17 Disposition Discussed With: Patient, Family
[2018-04-29] MEDS ORDERED: LACTATED RINGERS 1,000 ML IV STA (16:03)
[2018-04-29 16:05] VITALS: BP 152/99
--- NOTE | 2018-04-30 03:31 | DI ---
EXAM: Chest, single view 04/29/2018 HISTORY: Syncope COMPARISON: 12/26/2017 FINDINGS / IMPRESSION: Cardiomediastinal contours appear stable. Catheter tubing traverses the righ t chest. This appears stable. Left side pacer device in place No pulmonary consolidation. No pleural effusion or pneumothorax. No acute cardiopulmonary process.
== END 2018-04-29 17:28 | disposition home or self-care (01) ==
LOC: ED 14:25
DX: R55 Syncope and collapse (principal); R51 Headache; R42 Dizziness and giddiness; F41.9 Anxiety disorder, unspecified; E86.0 Dehydration
CPT/HCPCS: 36415; 80053; 82150; 82550; 83690; 84484; 85025; 93005; 93010; 96360; 99283